=== PATIENT | male | born 1965 | race Caucasian/White ===

== ENCOUNTER → 2017-09-20 | Outpatient (CLI) | payer OTHER ==
--- NOTE | 2017-09-20 17:57 | CONS ---
CONSULTATION DATE OF SERVICE: 09/20/2017 52-year-old gentleman has been evaluated in the sleep center for possible obstructive sleep apnea-hypopnea syndrome. HISTORY OF PRESENT ILLNESS SLEEP WAKE EVALUATION: SLEEP SCHEDULE: Patient usual sleep schedule on working days from around 10:00 p.m. until 4:30 to 4:45 am and on weekends from around 11:00 p.m. until 6:30 am. FALLING ASLEEP: The patient has problems with falling asleep, although no TV in bedroom. DURING SLEEP: He has very loud snoring and he constantly wakes up from sleep around 10 times per night. He has episodes of gasping for air. Grinding teeth sweating. DURING THE DAY/SLEEP WAKE EVALUATION: He feels sleepy during the day. [employer] Sleepiness Scale significantly increased to 11. No history of hypnagogic hallucinations, sleep paralysis or cataplexy. PAST MEDICAL HISTORY: Basically do not have any chronic medical issues at this times, basically negative. Back problems. PAST SURGICAL HISTORY: Laminectomy in the level of L4-5 and right ear surgery for tumor in 1993. MEDICATIONS: None. SOCIAL HISTORY: Positive for smoking several cigarettes a day about 5 cigarettes a day. Alcohol consumption occasional. FAMILY HISTORY: Patient was raised by his step dad so no information about parents medical problems. REVIEW OF SYSTEMS: Multiple awakenings from sleep more than 10 times and sleepiness during the day. PHYSICAL EXAM: A 52-year-old gentleman without distress. BP 141/85, HR 80, RR 16, height 5 feet 10 inches, weight 200, BMI 28.6, temperature 99.3, oxygen saturation from 97%. HEENT: Oropharynx moderately low position of soft palate, some restriction of nasal breathing, possible nasal septum deviation. Neck Supple, no JVD. Thyroid is not palpable. LUNGS Clear to percussion and to auscultation. Good air exchange. No wheezing or rhonchi. HEART S1, S2 regular. No murmurs, gallops, or rubs. ABDOMEN: Soft and nontender. Bowel sounds are present. No organomegaly appreciated. EXTREMITIES No clubbing or cyanosis. TRUST ADMINISTRATOR Awake, alert, and oriented X3. Cranial nerves 2 to 7 intact. There is no fasciculation or atrophy. noted. No focal deficits observed. IMPRESSION: 1. Snoring, awakenings from sleep with gasping for air. Low position of soft palate. Restriction of nasal breathing wide neck, excessive daytime sleepiness, obstructive sleep apnea-hypopnea syndrome. 2. Overweight, BMI 28.6. 3. Restriction of nasal breathing, possible nasal septum deviation. 4. Back problems. 5. Status post laminectomy at the level of L4-L5. 6. History of right ear tumor treated surgically in 1993. PLAN: 1. Polysomnography for evaluation of patient's breathing during sleep. 2. CPAP/BiPAP titration if sleep study confirms obstructive sleep apnea-hypopnea syndrome. 3. Preferable position during sleep on the side. 4. No driving if patient feels any sleepiness. 5. I will see patient for follow up visit to explain results of testing and following plan. Thank you very much for referring this patient for consultation. Sincerely, Derik Camarillo MD, PhD, FAASM Diplomat of [employer] [employer] [place] [employer] [facility] [place] MMODL / HUAN: [phone] /
== END | disposition home or self-care (01) ==
LOC: SLEEP 15:01
PROVIDERS: ATTEND Internal Medicine
DX: G47.33 Obstructive sleep apnea (adult) (pediatric) (principal); F17.210 Nicotine dependence, cigarettes, uncomplicated; Z68.28 Body mass index [BMI] 28.0-28.9, adult

== ENCOUNTER 2018-12-08 22:21 | Observation (INO) | payer OTHER ==
[2018-12-08] MEDS ORDERED: DIPH,PERTUS(ACELL)TETVAC-LF 0.5 ML VIAL IM ONE (22:23)
[2018-12-08] MEDS ORDERED: SODIUM CHLORIDE 0.9% 1,000 ML IV STA (22:23)
--- NOTE | 2018-12-08 22:43 | ED ---
Trauma HPI <Benigno Woodson P - Last Filed: 12/09/18 00:14> - General Source: EMS Mode of arrival: EMS Limitations: no limitations <Zaira Apple P - Last Filed: 12/09/18 05:53> - General Stated Complaint: fall, head lac Time Seen by Provider: 12/08/18 22:23 - History of Present Illness Initial Comments: RD is a 53-year-old woman and presents the emergency department today via EMS for evaluation of facial laceration. Patient admits he been drinking alcohol earlier, he had a mechanical trip and fall in which he fell forward, he forgot to put his hands out to brace him and landed instead on his forehead. Uncertain if the patient had any loss of consciousness. Patient then noted a large laceration on his forehead. He waited some time before deciding to call EMS to bring the hospital for evaluation. She complains only of headache and pain in his forehead where he has a large laceration. (Zaira Apple) - Related Data Home Medications Medication Instructions Recorded Confirmed Multivitamins, Thera [Multivitamin 1 tab PO DAILY 12/08/18 12/08/18 (formulary)] Allergies Allergy/AdvReac Type Severity Reaction Status Date / Time No Known Allergies Allergy Verified 12/08/18 22:55 Review of Systems ROS Other: All systems not noted in ROS Statement are negative. <Benigno Woodson P - Last Filed: 12/09/18 00:14> ROS Other: All systems not noted in ROS Statement are negative. <Zaira Apple P - Last Filed: 12/09/18 05:53> ROS Statement: Those systems with pertinent positive or pertinent negative responses have been documented in the HPI. Past Medical History Past Medical History: No Reported History History of Any Multi-Drug Resistant Organisms: None Reported Past Surgical History: Back Surgery, Ear Surgery Past Psychological History: No Psychological Hx Reported Smoking Status: Current every day smoker Past Alcohol Use History: Occasional Past Drug Use History: None Reported <Zaira Apple P - Last Filed: 12/09/18 05:53> General Exam Limitations: no limitations <Zaira Apple P - Last Filed: 12/09/18 05:53> - General Exam Comments Initial Comments: Physical Exam GENERAL: Smell strongly of alcohol HENT: Large laceration from the hairline to the bridge of the nose, full thickness through muscle to the skull EYES: PERRL, EOMI PULMONARY: Unlabored respirations. No audible rales rhonchi or wheezing was noted. CARDIOVASCULAR: There is a regular rate and rhythm without any murmurs gallops or rubs. ABDOMEN: Soft and nontender with normal bowel sounds. SKIN: Skin is clear with no lesions or rashes and otherwise unremarkable. : Deferred NEUROLOGIC: Patient is alert and oriented x3. Moving all extremities spontaneously MUSCULOSKELETAL: Normal extremities with adequate strength and full range of motion. No lower extremity swelling or edema. No calf tenderness. PSYCHIATRIC: Pleasant, deny suicidal or homicidal ideations (Zaira Apple) Course Vital Signs 12/08/18 12/09/18 12/09/18 22:24 00:00 01:00 Temperature 98.8 F Pulse Rate 112 H 100 94 Respiratory 20 20 18 Rate Blood Pressure 139/107 137/90 138/86 O2 Sat by Pulse 97 97 97 Oximetry 12/09/18 12/09/18 02:00 04:00 Temperature 98.4 F Pulse Rate 90 87 Respiratory 16 20 Rate Blood Pressure 132/84 147/87 O2 Sat by Pulse 97 99 Oximetry Procedures - Laceration Laceration #1 Consent Obtained: verbal consent Indication: laceration Site: scalp Size (cm): 10 Description: linear Depth: involves muscle layer Anesthetic Used: lidocaine 1% Anesthesia Technique: local infiltration Amount (mls): 10 Pre-repair: wound explored, irrigated extensively (with saline pressure irrigation), deep structures intact Type of Sutures: other (ethilon) Size of Sutures: 5-0 Number of Sutures: 18 Technique: simple, interrupted (7), running (11) Patient Tolerated Procedure: well, no complications <Benigno Woodson P - Last Filed: 12/09/18 00:14> Medical Decision Making - Lab Data Result diagrams: 12/08/18 22:43 12/08/18 22:43 <Benigno Woodson P - Last Filed: 12/09/18 00:14> - Lab Data Result diagrams: 12/08/18 22:43 12/08/18 22:43 <Zaira Apple P - Last Filed: 12/09/18 05:53> - Medical Decision Making Patient was seen and evaluated. She'll less particles Airway, breathing and circulation intact Secondary survey reveals obvious head trauma with a very large laceration Labs and imaging were ordered Labs with leukocytosis likely reactive Alcohol level significantly elevated at greater than 300 CT imaging of the brain and cervical spine with no acute fractures no acute intracranial process Laceration was repaired The patient's alcohol level he will be admitted for observation with trauma surgeon on consult. Patient does not have primary care physician listed therefore will be admitted to the on-call physician group. Patient care was discussed with Dr. Flynn who accepts the admission, Dr. arce trauma surgeon was notified. (Zaira Apple) - Lab Data Lab Results 12/08/18 12/08/18 12/08/18 Range/Units 22:43 22:43 22:43 WBC 15.9 H (3.8-10.6) k/uL RBC 4.68 (4.30-5.90) m/uL Hgb 15.8 (13.0-17.5) gm/dL Hct 46.8 (39.0-53.0) % MCV 100.0 (80.0-100.0) fL MCH 33.7 (25.0-35.0) pg MCHC 33.7 (31.0-37.0) g/dL RDW 14.9 (11.5-15.5) % Plt Count 403 (150-450) k/uL Neutrophils % 75 % Lymphocytes % 19 % Monocytes % 2 % Eosinophils % 2 % Basophils % 1 % Neutrophils # 12.0 H (1.3-7.7) k/uL Lymphocytes # 3.0 (1.0-4.8) k/uL Monocytes # 0.3 (0-1.0) k/uL Eosinophils # 0.4 (0-0.7) k/uL Basophils # 0.1 (0-0.2) k/uL Manual Slide Review Performed Macrocytosis Slight PT (9.0-12.0) sec INR (<1.2) APTT (22.0-30.0) sec Sodium 146 H (137-145) mmol/L Potassium 4.4 (3.5-5.1) mmol/L Chloride 108 H (98-107) mmol/L Carbon Dioxide 23 (22-30) mmol/L Anion Gap 15 mmol/L BUN 11 (9-20) mg/dL Creatinine 0.78 (0.66-1.25) mg/dL Est GFR (CKD-EPI)AfAm >90 (>60 ml/min/1.73 sqM) Est GFR (CKD-EPI)NonAf >90 (>60 ml/min/1.73 sqM) Glucose 106 H (74-99) mg/dL Calcium 8.8 (8.4-10.2) mg/dL Total Bilirubin 0.3 (0.2-1.3) mg/dL AST 39 (17-59) U/L ALT 36 (21-72) U/L Alkaline Phosphatase 102 (38-126) U/L Troponin I <0.012 (0.000-0.034) ng/mL Total Protein 7.1 (6.3-8.2) g/dL Albumin 4.1 (3.5-5.0) g/dL Urine Color Urine Appearance (Clear) Urine pH (5.0-8.0) Ur Specific [place] (1.001-1.035) Urine Protein (Negative) Urine Glucose (UA) (Negative) Urine Ketones (Negative) Urine Blood (Negative) Urine Nitrite (Negative) Urine Bilirubin (Negative) Urine Urobilinogen (<2.0) mg/dL Ur Leukocyte Esterase (Negative) Urine RBC (0-5) /hpf Urine WBC (0-5) /hpf Ur Squamous Epith Cells (0-4) /hpf Hyaline Casts (0-2) /lpf Urine Mucus (None) /hpf Urine Opiates Screen (NotDetected) Ur Oxycodone Screen (NotDetected) Urine Methadone Screen (NotDetected) Ur Propoxyphene Screen (NotDetected) Ur Barbiturates Screen (NotDetected) U Tricyclic Antidepress (NotDetected) Ur Phencyclidine Scrn (NotDetected) Ur Amphetamines Screen (NotDetected) U Methamphetamines Scrn (NotDetected) U Benzodiazepines Scrn (NotDetected) Urine Cocaine Screen (NotDetected) U Marijuana (THC) Screen (NotDetected) Serum Alcohol 388 H* mg/dL Blood Type Blood Type Confirm Blood Type Recheck Bld Type Recheck Status Antibody Screen Spec Expiration Date 12/08/18 12/08/1812/08/19 Range/Units 22:43 22:51 23:56 WBC (3.8-10.6) k/uL RBC (4.30-5.90) m/uL Hgb (13.0-17.5) gm/dL Hct (39.0-53.0) % MCV (80.0-100.0) fL MCH (25.0-35.0) pg MCHC (31.0-37.0) g/dL RDW (11.5-15.5) % Plt Count (150-450) k/uL Neutrophils % % Lymphocytes % % Monocytes % % Eosinophils % % Basophils % % Neutrophils # (1.3-7.7) k/uL Lymphocytes # (1.0-4.8) k/uL Monocytes # (0-1.0) k/uL Eosinophils # (0-0.7) k/uL Basophils # (0-0.2) k/uL Manual Slide Review Macrocytosis PT 10.0 (9.0-12.0) sec INR 0.9 (<1.2) APTT 23.9 (22.0-30.0) sec Sodium (137-145) mmol/L Potassium (3.5-5.1) mmol/L Chloride (98-107) mmol/L Carbon Dioxide (22-30) mmol/L Anion Gap mmol/L BUN (9-20) mg/dL Creatinine (0.66-1.25) mg/dL Est GFR (CKD-EPI)AfAm (>60 ml/min/1.73 sqM) Est GFR (CKD-EPI)NonAf (>60 ml/min/1.73 sqM) Glucose (74-99) mg/dL Calcium (8.4-10.2) mg/dL Total Bilirubin (0.2-1.3) mg/dL AST (17-59) U/L ALT (21-72) U/L Alkaline Phosphatase (38-126) U/L Troponin I (0.000-0.034) ng/mL Total Protein (6.3-8.2) g/dL Albumin (3.5-5.0) g/dL Urine Color Urine Appearance (Clear) Urine pH (5.0-8.0) Ur Specific [place] (1.001-1.035) Urine Protein (Negative) Urine Glucose (UA) (Negative) Urine Ketones (Negative) Urine Blood (Negative) Urine Nitrite (Negative) Urine Bilirubin (Negative) Urine Urobilinogen (<2.0) mg/dL Ur Leukocyte Esterase (Negative) Urine RBC (0-5) /hpf Urine WBC (0-5) /hpf Ur Squamous Epith Cells (0-4) /hpf Hyaline Casts (0-2) /lpf Urine Mucus (None) /hpf Urine Opiates Screen (NotDetected) Ur Oxycodone Screen (NotDetected) Urine Methadone Screen (NotDetected) Ur Propoxyphene Screen (NotDetected) Ur Barbiturates Screen (NotDetected) U Tricyclic Antidepress (NotDetected) Ur Phencyclidine Scrn (NotDetected) Ur Amphetamines Screen (NotDetected) U Methamphetamines Scrn (NotDetected) U Benzodiazepines Scrn (NotDetected) Urine Cocaine Screen (NotDetected) U Marijuana (THC) Screen (NotDetected) Serum Alcohol mg/dL Blood Type A Positive Blood Type Confirm A Positive Blood Type Recheck No Previous Record Bld Type Recheck Status CABO Indicated Antibody Screen NEGATIVE Spec Expiration Date 12/11/2018 - 234212/09/18 Range/Units 02:45 WBC (3.8-10.6) k/uL RBC (4.30-5.90) m/uL Hgb (13.0-17.5) gm/dL Hct (39.0-53.0) % MCV (80.0-100.0) fL MCH (25.0-35.0) pg MCHC (31.0-37.0) g/dL RDW (11.5-15.5) % Plt Count (150-450) k/uL Neutrophils % % Lymphocytes % % Monocytes % % Eosinophils % % Basophils % % Neutrophils # (1.3-7.7) k/uL Lymphocytes # (1.0-4.8) k/uL Monocytes # (0-1.0) k/uL Eosinophils # (0-0.7) k/uL Basophils # (0-0.2) k/uL Manual Slide Review Macrocytosis PT (9.0-12.0) sec INR (<1.2) APTT (22.0-30.0) sec Sodium (137-145) mmol/L Potassium (3.5-5.1) mmol/L Chloride (98-107) mmol/L Carbon Dioxide (22-30) mmol/L Anion Gap mmol/L BUN (9-20) mg/dL Creatinine (0.66-1.25) mg/dL Est GFR (CKD-EPI)AfAm (>60 ml/min/1.73 sqM) Est GFR (CKD-EPI)NonAf (>60 ml/min/1.73 sqM) Glucose (74-99) mg/dL Calcium (8.4-10.2) mg/dL Total Bilirubin (0.2-1.3) mg/dL AST (17-59) U/L ALT (21-72) U/L Alkaline Phosphatase (38-126) U/L Troponin I (0.000-0.034) ng/mL Total Protein (6.3-8.2) g/dL Albumin (3.5-5.0) g/dL Urine Color Yellow Urine Appearance Cloudy (Clear) Urine pH 5.5 (5.0-8.0) Ur Specific [place] 1.011 (1.001-1.035) Urine Protein Negative (Negative) Urine Glucose (UA) Negative (Negative) Urine Ketones Negative (Negative) Urine Blood Negative (Negative) Urine Nitrite Negative (Negative) Urine Bilirubin Negative (Negative) Urine Urobilinogen <2.0 (<2.0) mg/dL Ur Leukocyte Esterase Small H (Negative) Urine RBC 1 (0-5) /hpf Urine WBC 8 H (0-5) /hpf Ur Squamous Epith Cells <1 (0-4) /hpf Hyaline Casts 7 H (0-2) /lpf Urine Mucus Rare H (None) /hpf Urine Opiates Screen Not Detected (NotDetected) Ur Oxycodone Screen Not Detected (NotDetected) Urine Methadone Screen Not Detected (NotDetected) Ur Propoxyphene Screen Not Detected (NotDetected) Ur Barbiturates Screen Not Detected (NotDetected) U Tricyclic Antidepress Not Detected (NotDetected) Ur Phencyclidine Scrn Not Detected (NotDetected) Ur Amphetamines Screen Not Detected (NotDetected) U Methamphetamines Scrn Not Detected (NotDetected) U Benzodiazepines Scrn Not Detected (NotDetected) Urine Cocaine Screen Not Detected (NotDetected) U Marijuana (THC) Screen Not Detected (NotDetected) Serum Alcohol mg/dL Blood Type Blood Type Confirm Blood Type Recheck Bld Type Recheck Status Antibody Screen Spec Expiration Date Disposition <Benigno Woodson P - Last Filed: 12/09/18 00:14> Is patient prescribed a controlled substance at d/c from ED?: No <Zaira Apple P - Last Filed: 12/09/18 05:53> Clinical Impression: Fall, Alcohol intoxication Disposition: ADMITTED IP TO THIS HOSP Condition: Stable
[2018-12-08] MEDS ORDERED: LIDOCAINE 1% INJ 10MG/ML (20 ML MDV) SQ ONE ×2 (22:51→22:52)
[2018-12-08 22:55] LABS: Basophils # (A) 0.1 k/uL (0-0.2); Basophils % (A) 1 %; Eosinophils # (A) 0.4 k/uL (0-0.7); Eosinophils % (A) 2 %; HCT 46.8 % (39.0-53.0); HGB 15.8 gm/dL (13.0-17.5); Lymphocytes % (A) 19 %; MCH 33.7 pg (25.0-35.0); MCHC 33.7 g/dL (31.0-37.0); Macrocytosis Slight; Mean Platelet Volume 7.3; Monocytes # (A) 0.3 k/uL (0-1.0); Monocytes % (A) 2 %; Neutrophils % (A) 75 %; Platelet Count 403 k/uL (150-450); RBC 4.68 m/uL (4.30-5.90); RDW 14.9 % (11.5-15.5); WBC 15.9 k/uL (3.8-10.6)
[2018-12-08 23:08] LABS: ALT 36 U/L (21-72); AST 39 U/L (17-59); African American GFR (CKD) >90 (>60 ml/min/1.73 sqM); Albumin 4.1 g/dL (3.5-5.0); Alkaline Phosphatase 102 U/L (38-126); Anion Gap 15 mmol/L; Blood Urea Nitrogen 11 mg/dL (9-20); Calcium 8.8 mg/dL (8.4-10.2); Carbon Dioxide 23 mmol/L (22-30); Chloride 108 mmol/L (98-107); Glucose 106 mg/dL (74-99); Potassium 4.4 mmol/L (3.5-5.1); Sodium 146 mmol/L (137-145); Total Bilirubin 0.3 mg/dL (0.2-1.3); Total Protein 7.1 g/dL (6.3-8.2)
[2018-12-08 23:17] LABS: Alcohol 388 mg/dL
--- NOTE | 2018-12-08 23:33 | CT ---
EXAM: CT Head Without Intravenous Contrast CLINICAL HISTORY: ITS.REASON CT Reason: trauma TECHNIQUE: Axial computed tomography images of the head/brain without intravenous contrast. CTDI is 62 mGy and DLP is 1440 mGy-cm. This CT exam was performed using one or more of the following dose reduction techniques: automated exposure control, adjustment of the mA and/or kV according to patient size, and/or use of iterative reconstruction technique. COMPARISON: No relevant prior studies available. FINDINGS: Brain: No hemorrhage or mass effect. Ventricles: No hydrocephalus. Bones/joints: Unremarkable. Soft tissues: Unremarkable. Sinuses: Unremarkable. Mastoid air cells: Clear. Right-sided mastoidectomy. IMPRESSION: No acute hemorrhage, hydrocephalus, or mass effect. EXAM: CT Cervical Spine Without Intravenous Contrast CLINICAL HISTORY: ITS.REASON CT Reason: trauma TECHNIQUE: Axial computed tomography images of the cervical spine without intravenous contrast. CTDI is 62 mGy and DLP is 1440 mGy-cm. This CT exam was performed using one or more of the following dose reduction techniques: automated exposure control, adjustment of the mA and/or kV according to patient size, and/or use of iterative reconstruction technique. COMPARISON: No relevant prior studies available. FINDINGS: Vertebrae: No acute fracture. Discs/spinal canal/neural foramina: Mild degenerative changes. No spinal canal stenosis. Soft tissues: Unremarkable. IMPRESSION: No acute fracture or subluxation.
--- NOTE | 2018-12-08 23:54 | XR ---
EXAM: XR Chest, 1 View CLINICAL HISTORY: ITS.REASON XR Reason: trauma TECHNIQUE: Frontal view of the chest. COMPARISON: No relevant prior studies available. FINDINGS: Lungs: No consolidation or mass. Pleural space: No acute findings Heart: No cardiomegaly. Mediastinum: Unremarkable. Bones/joints: No acute findings. IMPRESSION: No acute cardiopulmonary process.
--- NOTE | 2018-12-09 00:16 | XR ---
EXAM: XR Pelvis, 1 or 2 Views CLINICAL HISTORY: ITS.REASON XR Reason: Trauma TECHNIQUE: Frontal view of the pelvis. COMPARISON: No relevant prior studies available. FINDINGS: Bones/joints: No acute fracture. No dislocation. Soft tissues: Unremarkable. IMPRESSION: No acute findings.
[2018-12-09 00:22] LABS: INR 0.9 (<1.2); Partial Thromboplastin Time 23.9 sec (22.0-30.0)
[2018-12-09 02:54] LABS: Appearance,Urine Cloudy (Clear); Bilirubin,Urine Negative (Negative); Blood,Urine Negative (Negative); Color,Urine Yellow; Glucose,Urine (UA) Negative (Negative); Hyaline Casts,Urine 7 /lpf (0-2); Ketones,Urine Negative (Negative); Leukocyte Esterase,Urine Small (Negative); Mucus,Urine Rare /hpf; Nitrite,Urine Negative (Negative); PH, Urine 5.5 (5.0-8.0); Protein,Urine Negative (Negative); RBC,Urine 1 /hpf (0-5); Specific Gravity,Urine 1.011 (1.001-1.035); Squamous Epithelial Cell,Urine <1 /hpf (0-4); Urobilinogen,Urine <2.0 mg/dL (<2.0); WBC,Urine 8 /hpf (0-5)
[2018-12-09 03:09] LABS: Amphetamine Screen,Urine Not Detected (NotDetected); Barbiturate Screen,Urine Not Detected (NotDetected); Benzodiazepines Screen,Urine Not Detected (NotDetected); Cocaine Screen,Urine Not Detected (NotDetected); Methadone Screen, Urine Not Detected (NotDetected); Opiate Screen,Urine Not Detected (NotDetected); Oxycodone Screen, Urine Not Detected (NotDetected); Phencyclidine Screen,Urine Not Detected (NotDetected); Tricyclic Antidepressant,Urine Not Detected (NotDetected); Urn Cannabinoid Scrn Not Detected (NotDetected)
[2018-12-09] MEDS ORDERED: NALOXONE 0.4 MG/ML 1 ML VIAL IV PRN (03:52)
[2018-12-09] MEDS ORDERED: THIAMINE 100 MG/ML 2 ML VIAL IM STA (03:53)
[2018-12-09] MEDS ORDERED: LORazepam 2 MG/ML INJ IV PRN ×3 (03:53)
--- NOTE | 2018-12-09 04:30 | P.HPIM ---
History of Present Illness H&P Date: 12/09/18 Patient is a 53-year-old male with a PMH of EtOH abuse who presented to the ED after suffering facial trauma while intoxicated. The patient notes that he was drinking heavily tonight with his friends when he had a fall in his kitchen and struck his forehead on his kitchen counter table. The patient denied loss of consciousness, nausea, vomiting, or visual disturbances. The patient subsequently noted that he had suffered a large forehead laceration, at which time he came to the ED. The patient notes that he normally does not drink this much, though is unwilling to say what she does drink on a daily basis. He was noted to have a full-thickness forehead laceration from the hairline down to the nose, requiring 18 stitches. He underwent an extensive was in the emergency room with a WBC count of 15.9, hemoglobin 15.8, platelets 43, sodium 146, potassium 4.4, BUN 11, creatinine 0.78, troponin less than 0.012, glucose 106, and alcohol level of 388. Head/spinal CT revealed no acute abnormalities, chest x-ray was unremarkable, and pelvis x-ray also showed no acute findings. The patient is subsequently being admitted to the medicine service under observation for alcohol intoxication. Review of Systems Pertinent positives and negatives as discussed in HPI, a complete review of systems was performed and all other systems are negative. Past Medical History Past Medical History: No Reported History History of Any Multi-Drug Resistant Organisms: None Reported Past Surgical History: Back Surgery, Ear Surgery Past Psychological History: No Psychological Hx Reported Smoking Status: Current every day smoker Past Alcohol Use History: Occasional Past Drug Use History: None Reported Medications and Allergies Home Medications Medication Instructions Recorded Confirmed Type Multivitamins, Thera [Multivitamin 1 tab PO DAILY 12/08/18 12/08/18 History (formulary)] Allergies Allergy/AdvReac Type Severity Reaction Status Date / Time No Known Allergies Allergy Verified 12/08/18 22:55 Physical Exam Vitals: Vital Signs Temp Pulse Resp BP Pulse Ox 12/09/18 04:00 98.4 F 87 20 147/87 99 12/09/18 02:00 90 16 132/84 97 12/09/18 01:00 94 18 138/86 97 12/09/18 00:00 100 20 137/90 97 09/15/19 22:24 98.8 F 112 H 20 139/107 97 Intake and Output 12/08/18 12/08/18 12/09/18 14:59 22:59 06:59 Other: Weight 87.09 kg General: non toxic, no distress, appears at stated age, normal weight Derm: no unusual rashes/lesions no unusual ecchymoses, warm, dry Head: Large forehead laceration from hairline down towards to nose, with stitches in place,, symmetric Eyes: EOMI, no lid lag, anicteric sclera, pupils equal round reactive to light ENT: Nose and ears atraumatic, no thrush, no pharyngeal erythema Neck: No thyromegaly, no cervical lymphadenopathy, trachea midline, supple Mouth: no lip lesion, mucus membranes moist Cardiovascular: S1S2 reg, no murmur, positive posterior tibial pulse bilateral, no edema, capillary refill less than 2 seconds Lungs: CTA bilateral, no rhonchi, no rales , no accessory muscle use Abdominal: soft, nontender to palpation, no guarding, no appreciable organomegaly, normal bowel sounds Ext: no gross muscle atrophy, muscle strength 5 out of 5 in all 4 extremities grossly, no contractures, Neuro: CN II-XI grossly intact, light touch intact all 4 extremities, finger to nose within normal limits Psych: Somewhat lethargic, oriented to person, place, and time Results CBC & Chem 7: 12/08/18 22:43 12/08/18 22:43 Labs: Abnormal Lab Results - Last 24 Hours (Table) 12/08/18 12/08/18 12/09/18 Range/Units 22:43 22:43 02:45 WBC 15.9 H (3.8-10.6) k/uL Neutrophils # 12.0 H (1.3-7.7) k/uL Sodium 146 H (137-145) mmol/L Chloride 108 H (98-107) mmol/L Glucose 106 H (74-99) mg/dL Ur Leukocyte Esterase Small H (Negative) Urine WBC 8 H (0-5) /hpf Hyaline Casts 7 H (0-2) /lpf Urine Mucus Rare H (None) /hpf Serum Alcohol 388 H* mg/dL Assessment and Plan Plan: Acute alcohol intoxication -Thiamine, folate, multivitamin -Advised on importance of cessation -Aspiration, seizure, fall precautions -CIWA protocol -Monitor electrolytes and replace Facial laceration -Surgery consulted Leukocytosis -Likely secondary to acute stress -Monitor for now -No active signs of infection DVT prophylaxis -IPCD The patient is admitted with an anticipated less than 2 midnight stay for evaluation of alcohol intoxication CODE STATUS: Full Code Discussed with: Patient Anticipated discharge date: 12/09/[address]: Home A total of 35 minutes was spent on the care of this complex patient more than 50% of the time was spent in counseling and care coordination.
[2018-12-09] MEDS ORDERED: SODIUM CHLORIDE 0.9% 1,000 ML IV SCH (05:15)
[2018-12-09 07:43] VITALS: BP 129/68; PULSE 82; RESP 18; TEMP 98.2
--- NOTE | 2018-12-09 10:44 | P.DS ---
Providers Date of admission: 12/09/18 03:52 Expected date of discharge: 12/09/18 Attending physician: Mary Valdez MD Consults: 12/09/18 03:52 Consult Physician Stat Consulting Provider: Fredrick Giang Consult Reason/Comments: fall, facial trauma Do you want consulting provider notified?: Already Contacted Primary care physician: [facility] Course: 53-year-old male with a PMH of EtOH abuse who presented to the ED after suffering facial trauma while intoxicated. The patient notes that he was drinking heavily tonight with his friends when he had a fall in his kitchen and struck his forehead on his kitchen counter table. The patient denied loss of consciousness, nausea, vomiting, or visual disturbances. The patient subsequently noted that he had suffered a large forehead laceration, at which time he came to the ED. The patient notes that he normally does not drink this much, though is unwilling to say what she does drink on a daily basis. He was noted to have a full-thickness forehead laceration from the hairline down to the nose, requiring 18 stitches. He underwent an extensive was in the emergency room with a WBC count of 15.9, hemoglobin 15.8, platelets 43, sodium 146, potassium 4.4, BUN 11, creatinine 0.78, troponin less than 0.012, glucose 106, and alcohol level of 388. Head/spinal CT revealed no acute abnormalities, chest x-ray was unremarkable, and pelvis x-ray also showed no acute findings. The patient is subsequently being admitted to the medicine service under observation for alcohol intoxication. Patient was started on CIWA protocol and given thiamine. He was started on normal saline at 100 mL per hour. He was placed on fall and aspiration precautions. Patient was seen and examined. No acute events overnight. Patient is anxious to go home. He denies any chest pain, shortness of breath or palpitations. States that he tripped over his cat. He denies any loss of consciousness. General: [non toxic], [no distress], [appears at stated age] Derm: [warm], [dry], [large laceration over the forehead with stitches in place] Head: [atraumatic], [normocephalic], [symmetric] Eyes: [EOMI], [no lid lag], [anicteric sclera] Cardiovascular: [S1S2 reg], [no murmur], [positive DP pulse bilateral], Lungs: [CTA bilateral], [no rhonchi, no rales] , [no accessory muscle use] Abdominal: [soft], [ nontender to palpation], [no guarding], [no appreciable organomegaly] Ext: [no gross muscle atrophy], [no edema], [no contractures] Neuro: [no focal neuro deficits] Psych: [Alert], [oriented], [appropriate affect] Acute alcohol intoxication Facial laceration Leukocytosis Serum alcohol 388 on admission. He is alert and oriented 3 currently. Plans: CIWA protocol. Ativan as needed for withdrawal. Continue thiamine. Stitches placed in ED. Plans: Follow-up with PCP for stitches removal. Will provide 7 days of Keflex. WBC count 15.9. No signs of infection. Likely reactive from acute distress. Plans: Continue to monitor. [Patient is alert and oriented 3 and appears sober. Will discharge patient home with Keflex for 7 days. Advised to follow-up with PCP for removal of stitches. Patient verbalized understanding of plan.] Pertinent Studies: Head CT, C-spine CT, chest x-ray, pelvic x-ray Patient Condition at Discharge: Stable Plan - Discharge Summary New Discharge Prescriptions: New Thiamine [Vitamin B-1] 100 mg PO BID-W/MEALS #60 tab Cephalexin [Keflex] 250 mg PO Q6HR #28 cap Continue Multivitamins, Thera [Multivitamin (formulary)] 1 tab PO DAILY Discharge Medication List Multivitamins, Thera [Multivitamin (formulary)] 1 tab PO DAILY 12/08/18 [History] Cephalexin [Keflex] 250 mg PO Q6HR #28 cap 12/09/18 [Rx] Thiamine [Vitamin B-1] 100 mg PO BID-W/MEALS #60 tab 12/09/18 [Rx] Follow up Appointment(s)/Referral(s): Holland Mcdaniel MD [Primary Care Provider] - 1-2 days Activity/Diet/Wound Care/Special Instructions: Diet: Regular Follow-up with PCP within 1-2 days discharge. Take all medications as advised. Please come back to the ED in 10 days for follow-up with your PCP for stitches removal.
[2018-12-09] MEDS ORDERED: THIAMINE 100 MG TAB PO SCH (17:00)
== END 2018-12-09 10:55 | disposition home or self-care (01) ==
LOC: EC 22:21 → 4SSUR 12-09 03:52
PROVIDERS: ADMIT Internal Medicine; ATTEND Internal Medicine
DX: F10.129 Alcohol abuse with intoxication, unspecified (principal); S01.81XA Laceration without foreign body of other part of head, initial encounter; D72.829 Elevated white blood cell count, unspecified; Y90.8 Blood alcohol level of 240 mg/100 ml or more; Y92.000 Kitchen of unspecified non-institutional (private) residence as the place of occurrence of the external cause; W22.09XA Striking against other stationary object, initial encounter; F17.200 Nicotine dependence, unspecified, uncomplicated; Z23 Encounter for immunization
CPT/HCPCS: 90471; 96365; 96372; 99285; 12054; 36415; 93005; 86900; 86901; 80053; 83735; 84484; 85025; 85610; 85730; 86850; 81001; 80306; 72170; 71045; 72125; 70450; 90715; G0378; G0480; J3411; J0690; J2001; 80320